=== PATIENT | male | born 1995 | race Hispanic/Latino ===

== ENCOUNTER 2022-09-17 12:30 | Emergency (ER) | payer OTHER ==
[~2022-09-17] VITALS: Ht 180.3 cm; Wt 163.3 kg
[2022-09-17 12:34] VITALS: BP 175/107
[2022-09-17] MEDS ORDERED: AMOX500C2 PO (13:52)
[2022-09-17] MEDS ORDERED: CEFTRIAXONE 1G VIAL IM ONE (14:00)
== END 2022-09-17 14:25 | disposition home or self-care (01) ==
LOC: EDH 12:30
DX: J02.0 Streptococcal pharyngitis (principal); R50.9 Fever, unspecified; R09.81 Nasal congestion; Z20.822 Contact with and (suspected) exposure to COVID-19; Z88.0 Allergy status to penicillin
CPT/HCPCS: 99283; 87635; 87880; 87804 ×2; 96372; C9803; J0696

== ENCOUNTER 2022-10-18 05:11 | Emergency (ER) | payer OTHER ==
[~2022-10-18] VITALS: Ht 180.3 cm; Wt 156.0 kg
[~2022-10-18 05:11] MED LIST: AMOX500C2 PO
[2022-10-18 06:11] VITALS: BP 138/88
[2022-10-18] MEDS ORDERED: GUAI1TBM19 PO (06:11)
[2022-10-18] MEDS ORDERED: AZIT500T2 PO (06:11)
[2022-10-18] MEDS ORDERED: ISOP30DR11 OT (06:11)
[2022-10-18] MEDS ORDERED: ACETAMINOPHEN 325 MG TAB PO ONE (06:30)
== END 2022-10-18 06:19 | disposition home or self-care (01) ==
LOC: EDH 05:11
DX: J20.9 Acute bronchitis, unspecified (principal); H92.01 Otalgia, right ear; I10 Essential (primary) hypertension; Z20.822 Contact with and (suspected) exposure to COVID-19
CPT/HCPCS: 99283; 87635; 87880; 87804 ×2; C9803